=== PATIENT | female | born 1955 | race Caucasian/White ===

== ENCOUNTER 2018-08-10 07:40 | Inpatient (IN) | payer BC, SELFPAY ==
[~2018-08-10] VITALS: Ht 165.1 cm; Wt 163.6 kg
[~2018-08-10 07:40] MED LIST: COL100C PO; HYDR-3964 PO; KEP500T PO; MAX25Tt PO; NIFE90TA37 PO; PREG75CA30 PO; SYN0.0125T PO; VITA1TAB PO; VITC500T PO; ZOL50T PO
[2018-08-10 08:21] LABS: BASOPHILS # (AUTO) 0.1 X10'3 (0-0.2); BASOPHILS % (AUTO) 0.8 % (0-1); EOSINOPHILS # (AUTO) 0.1 X10'3 (0-0.9); EOSINOPHILS % (AUTO) 1.5 % (0-6); HEMATOCRIT 46.3 % (35.0-45.0); HEMOGLOBIN 14.7 g/dl (12.0-16.0); LYMPHOCYTES % (AUTO) 13.6 % (21-51); MEAN CORPUSCULAR HGB CONC 31.8 g/dL (33.0-36.5); MEAN CORPUSCULAR VOLUME 91.2 FL (78-98); MEAN PLATELET VOLUME 7.7 FL (7.4-10.4); MONOCYTES # (AUTO) 0.6 X10'3 (0-0.9); MONOCYTES % (AUTO) 8.1 % (2-12); NEUTROPHILS # (AUTO) 5.6 X10'3 (1.8-7.7); PLATELET COUNT 268 X10'3 (140-440); RED BLOOD COUNT 5.07 X10'6 (4.20-5.60); RED CELL DISTRIBUTION WIDTH 15.9 % (11.5-14.5); WHITE BLOOD COUNT 7.4 X10'3 (4.5-11.0)
[2018-08-10 08:34] LABS: ALANINE AMINOTRANSFERASE 20 U/L (12-78); ALBUMIN 3.5 G/DL (3.4-5.0); ALBUMIN/GLOBULIN RATIO 0.8 (1.1-1.5); ALKALINE PHOSPHATASE 77 IU/L (46-116); ANION GAP 5 (8-16); ASPARTATE AMINO TRANSFERASE 12 U/L (10-37); BILIRUBIN,TOTAL 0.5 MG/DL (0.1-1.0); BLOOD UREA NITROGEN 31 MG/DL (7-18); BUN/CREATININE RATIO 23.8 (6.6-38.0); CALCIUM 8.9 MG/DL (8.5-10.1); CHLORIDE 102 MMOL/L (99-107); GLUCOSE 106 MG/DL (70-104); POTASSIUM 3.5 MMOL/L (3.5-5.1); SODIUM 140 MMOL/L (135-145); TOTAL CARBON DIOXIDE 32.8 MMOL/L (24-32); TOTAL PROTEIN 7.8 G/DL (6.4-8.2); eGFR 41 ML/MIN
[2018-08-10 08:40] LABS: D-DIMER 1.05 MG/L FEU (0-0.50)
[2018-08-10] MEDS ORDERED: furosemide 10 MG/1 ML 10ml inj IV ONE (09:20)
[2018-08-10] MEDS ORDERED: potassium Cl 20 mEq SR tablet PO ONE (09:20)
[2018-08-10] MEDS ORDERED: iohexol 350MG/ML 100ml bottle IV ONE (09:44)
[2018-08-10] MEDS ORDERED: TRIA1CAP2 PO (10:00)
[2018-08-10] MEDS ORDERED: NIFE90TA2 PO (10:01)
[2018-08-10] MEDS ORDERED: TOPI50TA PO (10:03)
[2018-08-10] MEDS ORDERED: potassium CL 10mEq/100ml bag 100 ML IV PRN (11:40)
[2018-08-10] MEDS ORDERED: magnesium hydroxide 30ml (MOM) UD suspension PO PRN (11:40)
[2018-08-10] MEDS: K and/or MAG REPLACEMENT MC SCH (11:40)
[2018-08-10] MEDS ORDERED: magnesium Cl slow-release 64mg tablet PO PRN (11:40)
[2018-08-10] MEDS ORDERED: potassium Cl 40MEQ/NS 500ml 500 ML IV PRN (11:40)
[2018-08-10] MEDS ORDERED: potassium Cl 20 mEq SR tablet PO PRN ×2 (11:40)
[2018-08-10] MEDS ORDERED: diphenhydrAMINE 25mg capsule PO PRN (11:40)
[2018-08-10] MEDS ORDERED: mag hydrox/Alum hydrox/simeth 30ml oral suspension PO PRN (11:40)
[2018-08-10] MEDS ORDERED: HYDROcodone/acetaminophen 5mg/325mg tablet PO PRN (11:40)
[2018-08-10] MEDS ORDERED: magnesium 4gm in 100ml NS 100 ML IV PRN (11:40)
[2018-08-10] MEDS ORDERED: acetaminophen 325mg tablet PO PRN (11:40)
[2018-08-10] MEDS ORDERED: methylPREDNISolone sod succ 125mg/2ml vial IV ONE (11:40)
[2018-08-10] MEDS ORDERED: ondansetron/PF 4mg/2ml inj IV PRN (11:40)
[2018-08-10] MEDS ORDERED: morphine 2 MG/ML inj. syringe IV PRN ×2 (11:40)
[2018-08-10] MEDS ORDERED: HYDROcodone/acetaminophen 10/325mg tab PO PRN (11:40)
[2018-08-10] MEDS ORDERED: magnesium 2GM in 50ml NS 50 ML IV PRN (11:40)
[2018-08-10] MEDS ORDERED: labetalol 20mg/4ml (5mg/ml) syringe IV PRN (11:50)
[2018-08-10 12:24] LABS: COLOR,URINE YELLOW (Yellow); GLUCOSE, URINE NEGATIVE (Neg); KETONES,URINE NEGATIVE (Neg); LEUKOCYTE ESTERASE ,URINE NEGATIVE (Neg); NITRITES, URINE NEGATIVE (Neg); OCCULT BLOOD,URINE TRACE-LYSED (Neg); PROTEIN,URINE NEGATIVE (Neg); UROBILINOGEN,URINE 0.2 E.U/dL (0.2-1.0)
[2018-08-10 12:28] LABS: CLARITY,URINE SLIGHTLY CLOUDY (Clear); UA COLLECTION TYPE CLN CATCH MIDSTREAM
[2018-08-10 12:33] LABS: BACTERIA,URINE 1+ /HPF (Neg); RBC,URINE NONE SEEN /HPF (0-2); SQUAMOUS EPITHELIAL CELL,UR MANY /LPF (FEW); WBC,URINE NONE SEEN /HPF (0-4)
[2018-08-10] MEDS: normal saline 1000ml 1,000 ML IV SCH (12:33)
[2018-08-10] MEDS: levoFLOXACIN-Levaquin 500mg/D5 100 ML IV SCH (13:01)
[2018-08-10 13:04] LABS: HEMOGLOBIN A1C 6.4 % (4.5-6.2)
--- NOTE | 2018-08-10 13:06 | NUR ---
received pt report from Bia HOOPER.
[2018-08-10 13:15] VITALS: BP 165/87
--- NOTE | 2018-08-10 13:15 | NUR ---
pt arrived to floor via gurney ambulated to bed with cane. pt attached to cardiac monitoring; VSS. pt oriented to room and call light. at bedside.
[2018-08-10] MEDS: methylPREDNISolone sod succ 125mg/2ml vial IV SCH ×2 (13:39→21:08)
[2018-08-10 15:00] VITALS: BP 118/75
[2018-08-10] MEDS: ipratropium/albuterol 3ml nebule NEB SCH ×3 (16:24→23:04)
--- NOTE | 2018-08-10 18:00 | NUR ---
Patient in room PCU 3017. I have received report from Colby HOOPER and had the opportunity to ask questions and assume patient care.
--- NOTE | 2018-08-10 18:13 | NUR ---
pt report given to Romario HOOPER.
[2018-08-10 19:00] VITALS: BP 145/79
[2018-08-10] MEDS ORDERED: temazepam 15mg capsule PO PRN (21:00)
[2018-08-10] MEDS: topiramate 100mg tablet PO SCH (21:01)
[2018-08-10] MEDS: furosemide 10 MG/1 ML 10ml inj IV SCH (21:07)
[2018-08-10] MEDS: heparin, porcine 5000 units/ml vial SQ SCH (21:09)
[2018-08-10 23:00] VITALS: BP 131/73
[2018-08-11] VITALS (8 sets, daily range): BP systolic 93–149; BP diastolic 56–78
[2018-08-11] MEDS: methylPREDNISolone sod succ 125mg/2ml vial IV SCH ×4 (01:58→20:32)
[2018-08-11] MEDS: ipratropium/albuterol 3ml nebule NEB SCH ×4 (03:31→20:51)
--- NOTE | 2018-08-11 04:44 | NUR ---
Student documentation: I have reviewed and agree with all interventions, assessments performed and documented by Maegan Chong RN. Student Medication Administration: For this medication-pass time frame, all medication were reviewed, dispensed, administered and documented per hospital policy by Maegan Chong RN.
--- NOTE | 2018-08-11 05:21 | NUR ---
pt refused orthostatic BP during shift.
--- NOTE | 2018-08-11 06:00 | NUR ---
Patient in room PCU 3017. I have received report from Anthony RN and had the opportunity to ask questions and assume patient care.
--- NOTE | 2018-08-11 06:16 | NUR ---
Problems reprioritized. Patient report given, questions answered & plan of care reviewed with Mirella HOOPER.
[2018-08-11 06:24] LABS: BASOPHILS % (AUTO) 0.1 % (0-1); EOSINOPHILS % (AUTO) 0 % (0-6); HEMOGLOBIN 13.2 g/dl (12.0-16.0); LYMPHOCYTES # (AUTO) 0.2 X10'3 (1.1-4.8); LYMPHOCYTES % (AUTO) 3.5 % (21-51); MEAN CORPUSCULAR HEMOGLOBIN 28.9 PG (27.0-31.0); MEAN CORPUSCULAR HGB CONC 32.1 g/dL (33.0-36.5); MONOCYTES # (AUTO) 0.1 X10'3 (0-0.9); MONOCYTES % (AUTO) 1.7 % (2-12); NEUTROPHILS # (AUTO) 5.7 X10'3 (1.8-7.7); NEUTROPHILS % (AUTO) 94.7 % (42-75); PLATELET COUNT 229 X10'3 (140-440); RED BLOOD COUNT 4.55 X10'6 (4.20-5.60); RED CELL DISTRIBUTION WIDTH 15.8 % (11.5-14.5)
[2018-08-11 06:43] LABS: ALANINE AMINOTRANSFERASE 21 U/L (12-78); ALBUMIN 3.2 G/DL (3.4-5.0); ALBUMIN/GLOBULIN RATIO 0.8 (1.1-1.5); ALKALINE PHOSPHATASE 62 IU/L (46-116); ANION GAP 7 (8-16); ASPARTATE AMINO TRANSFERASE 12 U/L (10-37); BILIRUBIN,TOTAL 0.3 MG/DL (0.1-1.0); BLOOD UREA NITROGEN 28 MG/DL (7-18); BUN/CREATININE RATIO 21.2 (6.6-38.0); CALCIUM 8.4 MG/DL (8.5-10.1); CHLORIDE 102 MMOL/L (99-107); CHOL/HDL RATIO 2.7 (0.00-4.99); CHOLESTEROL 130 MG/DL (0-200); CREATININE 1.32 MG/DL (0.40-0.90); GLUCOSE 147 MG/DL (70-104); HDL CHOLESTEROL 49 MG/DL (35-60); LDL CHOLESTEROL 72 MG/DL (50-100); PHOSPHORUS 4.4 MG/DL (2.3-4.5); POTASSIUM 3.6 MMOL/L (3.5-5.1); SODIUM 142 MMOL/L (135-145); TOTAL CARBON DIOXIDE 32.8 MMOL/L (24-32); TOTAL PROTEIN 7.1 G/DL (6.4-8.2); TRIGLYCERIDES 65 MG/DL (20-135); eGFR 41 ML/MIN
[2018-08-11] MEDS: levoTHYROXINE 125mcg tablet PO SCH (07:09)
[2018-08-11] MEDS: K and/or MAG REPLACEMENT MC SCH (08:00)
[2018-08-11] MEDS: levoFLOXACIN-Levaquin 500mg/D5 100 ML IV SCH (08:47)
[2018-08-11] MEDS: sertraline 50mg tablet PO SCH (08:54)
[2018-08-11] MEDS: furosemide 10 MG/1 ML 10ml inj IV SCH ×2 (08:54→20:32)
[2018-08-11] MEDS: triamterene/HCTZ 37.5/25mg tablet PO SCH (08:54)
[2018-08-11] MEDS: NIFEdipine XL 30mg tablet PO SCH (08:55)
[2018-08-11] MEDS: heparin, porcine 5000 units/ml vial SQ SCH ×2 (08:57→20:31)
[2018-08-11] MEDS ORDERED: ipratropium/albuterol 3ml nebule NEB PRN (11:05)
[2018-08-11] MEDS: nystatin 15 GM powder TP SCH ×2 (16:08→20:33)
--- NOTE | 2018-08-11 18:00 | NUR ---
Problems reprioritized. Patient report given, questions answered & plan of care reviewed with Anthony HOOPER and Romario HOOPER.
--- NOTE | 2018-08-11 18:28 | NUR ---
Patient in room PCU 3017. I have received report from Mirella HOOPER and had the opportunity to ask questions and assume patient care.
[2018-08-11] MEDS: lactobacillus rhamnosus 10,000 MMU CELLS/CAPSULE PO SCH (20:32)
[2018-08-11] MEDS: topiramate 100mg tablet PO SCH (20:33)
--- NOTE | 2018-08-12 01:50 | NUR ---
pt O2 sat dropped to low 80s while in deep sleep with NC on, increased O2 from 2L to 3L, O2 sat increased to low 90s will reassess and titrate as needed.
[2018-08-12] MEDS: methylPREDNISolone sod succ 125mg/2ml vial IV SCH ×2 (02:25→09:16)
[2018-08-12 03:00] VITALS: BP 139/78
[2018-08-12] MEDS: ipratropium/albuterol 3ml nebule NEB SCH ×4 (03:00→20:37)
--- NOTE | 2018-08-12 03:06 | NUR ---
pt refused 0300 RT treatment
--- NOTE | 2018-08-12 06:00 | NUR ---
Patient in room PCU 3017. I have received report from Anthony HOOPER and Romario HOOPER and had the opportunity to ask questions and assume patient care.
--- NOTE | 2018-08-12 06:16 | NUR ---
Problems reprioritized. Patient report given, questions answered & plan of care reviewed with Mirella HOOPER.
[2018-08-12 06:26] LABS: BASOPHILS % (AUTO) 0.1 % (0-1); EOSINOPHILS % (AUTO) 0 % (0-6); HEMOGLOBIN 13.2 g/dl (12.0-16.0); LYMPHOCYTES # (AUTO) 0.2 X10'3 (1.1-4.8); LYMPHOCYTES % (AUTO) 3.4 % (21-51); MEAN CORPUSCULAR HEMOGLOBIN 28.6 PG (27.0-31.0); MEAN CORPUSCULAR HGB CONC 31.5 g/dL (33.0-36.5); MEAN CORPUSCULAR VOLUME 90.8 FL (78-98); MONOCYTES # (AUTO) 0.2 X10'3 (0-0.9); MONOCYTES % (AUTO) 2.4 % (2-12); NEUTROPHILS # (AUTO) 6.9 X10'3 (1.8-7.7); NEUTROPHILS % (AUTO) 94.1 % (42-75); PLATELET COUNT 236 X10'3 (140-440); RED BLOOD COUNT 4.63 X10'6 (4.20-5.60); RED CELL DISTRIBUTION WIDTH 16.2 % (11.5-14.5); WHITE BLOOD COUNT 7.3 X10'3 (4.5-11.0)
[2018-08-12 06:29] LABS: ALANINE AMINOTRANSFERASE 19 U/L (12-78); ALBUMIN 3.2 G/DL (3.4-5.0); ALBUMIN/GLOBULIN RATIO 0.8 (1.1-1.5); ALKALINE PHOSPHATASE 59 IU/L (46-116); ANION GAP 4 (8-16); ASPARTATE AMINO TRANSFERASE 8 U/L (10-37); BILIRUBIN,TOTAL 0.3 MG/DL (0.1-1.0); BLOOD UREA NITROGEN 36 MG/DL (7-18); BUN/CREATININE RATIO 26.7 (6.6-38.0); CALCIUM 8.4 MG/DL (8.5-10.1); CHLORIDE 101 MMOL/L (99-107); CREATININE 1.35 MG/DL (0.40-0.90); GLUCOSE 143 MG/DL (70-104); MAGNESIUM 2.2 MG/DL (1.5-2.4); PHOSPHORUS 5.4 MG/DL (2.3-4.5); POTASSIUM 3.8 MMOL/L (3.5-5.1); SODIUM 141 MMOL/L (135-145); TOTAL CARBON DIOXIDE 35.9 MMOL/L (24-32); TOTAL PROTEIN 7.1 G/DL (6.4-8.2); eGFR 40 ML/MIN
[2018-08-12 06:33] VITALS: BP 130/77
[2018-08-12] MEDS: K and/or MAG REPLACEMENT MC SCH (08:00)
[2018-08-12] MEDS: furosemide 10 MG/1 ML 10ml inj IV SCH ×2 (09:07→21:13)
[2018-08-12] MEDS: triamterene/HCTZ 37.5/25mg tablet PO SCH (09:17)
[2018-08-12] MEDS: lactobacillus rhamnosus 10,000 MMU CELLS/CAPSULE PO SCH ×2 (09:17→21:14)
[2018-08-12] MEDS: heparin, porcine 5000 units/ml vial SQ SCH ×2 (09:17→21:16)
[2018-08-12] MEDS: nystatin 15 GM powder TP SCH ×3 (09:17→21:30)
[2018-08-12] MEDS: NIFEdipine XL 30mg tablet PO SCH (09:17)
[2018-08-12] MEDS: levoTHYROXINE 125mcg tablet PO SCH (09:18)
[2018-08-12] MEDS: sertraline 50mg tablet PO SCH (09:18)
[2018-08-12 11:00] VITALS: BP_SYST 131; BP_SYST 150; BP_DIAS 108; BP_DIAS 70; BP_DIAS 93
[2018-08-12] MEDS: normal saline 1000ml 1,000 ML IV SCH (11:55)
[2018-08-12] MEDS: levoFLOXACIN 250mg tablet PO SCH (11:55)
[2018-08-12 15:00] VITALS: BP 144/81
--- NOTE | 2018-08-12 16:29 | NUR ---
Pt c/o tremors YENI, neuro assessment completed, no changes from assessment this AM. FSBG 121. Pt admits to having had tremors in past, but not this bad. Addendum: 08/12/18 at 1735 by Tameka Hardin RN 1700 Tremors in YENI have decreased in severity.
--- NOTE | 2018-08-12 18:15 | NUR ---
Patient in room PCU 3017. I have received report from Mirella HOOPER and had the opportunity to ask questions and assume patient care. Checked on patient, she is resting in bed with her at bedside. No current needs, will continue to monitor.
--- NOTE | 2018-08-12 18:30 | NUR ---
Problems reprioritized. Patient report given, questions answered & plan of care reviewed with Noemí HOOPER and Alondra HOOPER.
[2018-08-12 19:00] VITALS: BP 143/74
[2018-08-12] MEDS: methylPREDNISolone sod succ/PF 40mg inj. IV SCH (21:13)
[2018-08-12] MEDS: topiramate 100mg tablet PO SCH (21:14)
[2018-08-12 23:00] VITALS: BP 145/75
[2018-08-13 03:00] VITALS: BP 128/72
[2018-08-13] MEDS: ipratropium/albuterol 3ml nebule NEB SCH ×4 (03:16→21:11)
[2018-08-13 05:24] LABS: BASOPHILS % (AUTO) 0.2 % (0-1); EOSINOPHILS % (AUTO) 0 % (0-6); HEMATOCRIT 40.2 % (35.0-45.0); HEMOGLOBIN 12.9 g/dl (12.0-16.0); LYMPHOCYTES # (AUTO) 0.4 X10'3 (1.1-4.8); LYMPHOCYTES % (AUTO) 5.2 % (21-51); MEAN CORPUSCULAR HEMOGLOBIN 28.7 PG (27.0-31.0); MEAN CORPUSCULAR HGB CONC 32.2 g/dL (33.0-36.5); MEAN CORPUSCULAR VOLUME 89.2 FL (78-98); MONOCYTES # (AUTO) 0.5 X10'3 (0-0.9); MONOCYTES % (AUTO) 5.2 % (2-12); NEUTROPHILS # (AUTO) 7.8 X10'3 (1.8-7.7); NEUTROPHILS % (AUTO) 89.4 % (42-75); PLATELET COUNT 205 X10'3 (140-440); RED CELL DISTRIBUTION WIDTH 15.7 % (11.5-14.5); WHITE BLOOD COUNT 8.7 X10'3 (4.5-11.0)
[2018-08-13 06:00] VITALS: BP 127/77
[2018-08-13 06:10] LABS: ALANINE AMINOTRANSFERASE 22 U/L (12-78); ALBUMIN 3.2 G/DL (3.4-5.0); ALBUMIN/GLOBULIN RATIO 0.9 (1.1-1.5); ALKALINE PHOSPHATASE 53 IU/L (46-116); ANION GAP 3 (8-16); ASPARTATE AMINO TRANSFERASE 12 U/L (10-37); BILIRUBIN,TOTAL 0.3 MG/DL (0.1-1.0); BLOOD UREA NITROGEN 43 MG/DL (7-18); BUN/CREATININE RATIO 32.1 (6.6-38.0); CALCIUM 8.4 MG/DL (8.5-10.1); CHLORIDE 100 MMOL/L (99-107); CREATININE 1.34 MG/DL (0.40-0.90); GLUCOSE 116 MG/DL (70-104); MAGNESIUM 2.1 MG/DL (1.5-2.4); PHOSPHORUS 3.9 MG/DL (2.3-4.5); POTASSIUM 3.2 MMOL/L (3.5-5.1); SODIUM 142 MMOL/L (135-145); TOTAL CARBON DIOXIDE 39.5 MMOL/L (24-32); TOTAL PROTEIN 6.7 G/DL (6.4-8.2); eGFR 40 ML/MIN
[2018-08-13] MEDS: nystatin 15 GM powder TP SCH ×3 (08:00→21:39)
[2018-08-13] MEDS: K and/or MAG REPLACEMENT MC SCH (08:00)
[2018-08-13] MEDS: triamterene/HCTZ 37.5/25mg tablet PO SCH (08:22)
[2018-08-13] MEDS: sertraline 50mg tablet PO SCH (08:22)
[2018-08-13] MEDS: lactobacillus rhamnosus 10,000 MMU CELLS/CAPSULE PO SCH ×2 (08:22→19:22)
[2018-08-13] MEDS: methylPREDNISolone sod succ/PF 40mg inj. IV SCH (08:22)
[2018-08-13] MEDS: levoTHYROXINE 125mcg tablet PO SCH (08:22)
[2018-08-13] MEDS: furosemide 10 MG/1 ML 10ml inj IV SCH (08:22)
[2018-08-13] MEDS: heparin, porcine 5000 units/ml vial SQ SCH ×2 (08:23→19:23)
[2018-08-13] MEDS: NIFEdipine XL 30mg tablet PO SCH (08:30)
[2018-08-13 11:00] VITALS: BP 123/78
[2018-08-13] MEDS: levoFLOXACIN 250mg tablet PO SCH (11:36)
[2018-08-13] MEDS ORDERED: potassium Cl 20 mEq SR tablet PO PRN (13:50)
[2018-08-13] MEDS ORDERED: potassium CL 10mEq/100ml bag 100 ML IV PRN (13:50)
[2018-08-13] MEDS: potassium Cl 20 mEq SR tablet PO PRN ×2 (14:06→19:22)
[2018-08-13 15:00] VITALS: BP 128/82
--- NOTE | 2018-08-13 18:21 | NUR ---
Problems reprioritized. Patient report given, questions answered & plan of care reviewed with SANDIE Dowd.
[2018-08-13 19:00] VITALS: BP 116/73
[2018-08-13] MEDS: furosemide 40mg/4ml inj IV SCH (19:21)
[2018-08-13 20:56] LABS: ABG HCO3 42.3 mmol/L (22.0-26.0); ABG OXYGEN SATURATION 93.2 % (95-98); ABG PCO2 (T) 72.9 mmHg (32.0-45.0); ABG PH (T) 7.378 (7.350-7.450); ABG PO2 (T) 65.4 mmHg (83-108); ALLEN'S TEST Positive; FCOHb 1.1 % (0.5-1.5); FLOW 2 L/min; FMetHb 0.1 % (0.3-1.12); FO2Hb 92.1 % (94-100); PATIENT TEMPERATURE 36.3; TOTAL HEMOGLOBIN 15.3 G/dl (12.0-16.0)
[2018-08-13] MEDS: topiramate 100mg tablet PO SCH (21:38)
[2018-08-13 23:00] VITALS: BP 118/70
--- NOTE | 2018-08-13 23:47 | NUR ---
Nystop applied under breasts and panis--areas still red but improving
[2018-08-14] MEDS: potassium Cl 20 mEq SR tablet PO PRN ×4 (00:05→22:53)
[2018-08-14 03:00] VITALS: BP 120/75
[2018-08-14] MEDS: ipratropium/albuterol 3ml nebule NEB SCH ×4 (03:09→21:11)
[2018-08-14 05:58] LABS: BASOPHILS % (AUTO) 0.3 % (0-1); EOSINOPHILS % (AUTO) 0.4 % (0-6); HEMATOCRIT 44.6 % (35.0-45.0); LYMPHOCYTES # (AUTO) 1.3 X10'3 (1.1-4.8); LYMPHOCYTES % (AUTO) 16.9 % (21-51); MEAN CORPUSCULAR HEMOGLOBIN 28.4 PG (27.0-31.0); MEAN CORPUSCULAR HGB CONC 31.4 g/dL (33.0-36.5); MEAN CORPUSCULAR VOLUME 90.6 FL (78-98); MEAN PLATELET VOLUME 7.9 FL (7.4-10.4); MONOCYTES # (AUTO) 0.8 X10'3 (0-0.9); MONOCYTES % (AUTO) 9.8 % (2-12); NEUTROPHILS # (AUTO) 5.6 X10'3 (1.8-7.7); NEUTROPHILS % (AUTO) 72.6 % (42-75); PLATELET COUNT 202 X10'3 (140-440); RED BLOOD COUNT 4.92 X10'6 (4.20-5.60); RED CELL DISTRIBUTION WIDTH 15.8 % (11.5-14.5); WHITE BLOOD COUNT 7.7 X10'3 (4.5-11.0)
[2018-08-14 06:00] VITALS: BP 120/72
[2018-08-14 06:14] LABS: ALANINE AMINOTRANSFERASE 20 U/L (12-78); ALBUMIN 3.1 G/DL (3.4-5.0); ALBUMIN/GLOBULIN RATIO 0.9 (1.1-1.5); ALKALINE PHOSPHATASE 55 IU/L (46-116); ANION GAP 3 (8-16); ASPARTATE AMINO TRANSFERASE 13 U/L (10-37); BILIRUBIN,TOTAL 0.4 MG/DL (0.1-1.0); BLOOD UREA NITROGEN 44 MG/DL (7-18); BUN/CREATININE RATIO 33.8 (6.6-38.0); CALCIUM 8.3 MG/DL (8.5-10.1); CHLORIDE 101 MMOL/L (99-107); GLUCOSE 96 MG/DL (70-104); MAGNESIUM 2.2 MG/DL (1.5-2.4); PHOSPHORUS 4.4 MG/DL (2.3-4.5); POTASSIUM 3.4 MMOL/L (3.5-5.1); SODIUM 144 MMOL/L (135-145); TOTAL CARBON DIOXIDE 39.8 MMOL/L (24-32); TOTAL PROTEIN 6.7 G/DL (6.4-8.2); eGFR 41 ML/MIN
--- NOTE | 2018-08-14 06:30 | NUR ---
Patient in room PCU 3017B. I have received report from Noemí HOOPER and had the opportunity to ask questions and assume patient care.
[2018-08-14] MEDS: sertraline 50mg tablet PO SCH (07:36)
[2018-08-14] MEDS: nystatin 15 GM powder TP SCH ×3 (07:36→20:23)
[2018-08-14] MEDS: triamterene/HCTZ 37.5/25mg tablet PO SCH (07:36)
[2018-08-14] MEDS: levoTHYROXINE 125mcg tablet PO SCH (07:36)
[2018-08-14] MEDS: methylPREDNISolone sod succ/PF 40mg inj. IV SCH (07:36)
[2018-08-14] MEDS: NIFEdipine XL 30mg tablet PO SCH (07:36)
[2018-08-14] MEDS: lactobacillus rhamnosus 10,000 MMU CELLS/CAPSULE PO SCH ×2 (07:36→20:11)
[2018-08-14] MEDS: heparin, porcine 5000 units/ml vial SQ SCH ×2 (07:37→20:11)
[2018-08-14] MEDS: furosemide 40mg/4ml inj IV SCH ×2 (07:37→20:11)
[2018-08-14] MEDS: K and/or MAG REPLACEMENT MC SCH (07:51)
[2018-08-14 11:00] VITALS: BP_SYST 123; BP_SYST 127; BP_SYST 139; BP_DIAS 111; BP_DIAS 73; BP_DIAS 94
[2018-08-14] MEDS: normal saline 1000ml 1,000 ML IV SCH (11:37)
[2018-08-14] MEDS: levoFLOXACIN 250mg tablet PO SCH (11:46)
--- NOTE | 2018-08-14 14:14 | NUR ---
RN verbal consult: Pt requests to speak w/ RD regarding diet recommendations. Pt seen by RD and asked for alternative seasonings to salt which could add flavor for once she goes home since she is in process of d/c. Pt also asked about diet guidelines for wt loss. Given hx DM A1C <7; RD provided verbal DM diet guidelines emphasizing on portion sizing and alternative seasoning options. Pt also encouraged to increase activity if possible at home even through simple means; pt says she plans to start cooking for herself now. BARRY provided RD extension for pt to call in case further questions prior to d/c. Addendum: 08/14/18 at [address] Amended: Links added.
[2018-08-14 15:00] VITALS: BP 111/55
--- NOTE | 2018-08-14 18:20 | NUR ---
Patient in room PCU 3017. I have received report from Brittney OHOPER and had the opportunity to ask questions and assume patient care WITH RAHEEM HOOPER.
--- NOTE | 2018-08-14 18:21 | NUR ---
Problems reprioritized. Patient report given, questions answered & plan of care reviewed with Kylah HOOPER and Micaela HOOPER.
[2018-08-14 19:00] VITALS: BP 120/70
[2018-08-14] MEDS: topiramate 100mg tablet PO SCH (20:11)
[2018-08-14 23:00] VITALS: BP_SYST 121; BP_SYST 149; BP_SYST 153; BP_DIAS 65; BP_DIAS 78; BP_DIAS 81
[2018-08-15] MEDS: acetaminophen 325mg tablet PO PRN ×2 (00:42→22:30)
[2018-08-15] MEDS: ipratropium/albuterol 3ml nebule NEB SCH (02:42)
[2018-08-15 03:00] VITALS: BP 152/80
[2018-08-15 05:08] LABS: BASOPHILS % (AUTO) 0.3 % (0-1); EOSINOPHILS # (AUTO) 0.1 X10'3 (0-0.9); EOSINOPHILS % (AUTO) 1.2 % (0-6); HEMATOCRIT 46.8 % (35.0-45.0); LYMPHOCYTES # (AUTO) 1.3 X10'3 (1.1-4.8); LYMPHOCYTES % (AUTO) 14.9 % (21-51); MEAN CORPUSCULAR HEMOGLOBIN 28.6 PG (27.0-31.0); MEAN CORPUSCULAR VOLUME 89.5 FL (78-98); MEAN PLATELET VOLUME 7.8 FL (7.4-10.4); MONOCYTES # (AUTO) 0.8 X10'3 (0-0.9); MONOCYTES % (AUTO) 9.7 % (2-12); NEUTROPHILS # (AUTO) 6.2 X10'3 (1.8-7.7); NEUTROPHILS % (AUTO) 73.9 % (42-75); PLATELET COUNT 207 X10'3 (140-440); RED BLOOD COUNT 5.23 X10'6 (4.20-5.60); RED CELL DISTRIBUTION WIDTH 15.5 % (11.5-14.5); WHITE BLOOD COUNT 8.4 X10'3 (4.5-11.0)
[2018-08-15 05:39] LABS: ALANINE AMINOTRANSFERASE 24 U/L (12-78); ALBUMIN 3.2 G/DL (3.4-5.0); ALBUMIN/GLOBULIN RATIO 0.9 (1.1-1.5); ALKALINE PHOSPHATASE 55 IU/L (46-116); ANION GAP 2 (8-16); ASPARTATE AMINO TRANSFERASE 10 U/L (10-37); BILIRUBIN,TOTAL 0.5 MG/DL (0.1-1.0); BLOOD UREA NITROGEN 39 MG/DL (7-18); BUN/CREATININE RATIO 28.3 (6.6-38.0); CHLORIDE 99 MMOL/L (99-107); CREATININE 1.38 MG/DL (0.40-0.90); GLUCOSE 103 MG/DL (70-104); MAGNESIUM 2.3 MG/DL (1.5-2.4); PHOSPHORUS 4.1 MG/DL (2.3-4.5); POTASSIUM 3.6 MMOL/L (3.5-5.1); SODIUM 144 MMOL/L (135-145); TOTAL PROTEIN 6.9 G/DL (6.4-8.2); eGFR 39 ML/MIN
[2018-08-15 05:50] LABS: TOTAL CARBON DIOXIDE 43.2 MMOL/L (24-32)
--- NOTE | 2018-08-15 05:53 | NUR ---
PAGER ID: [phone] MESSAGE: Anne-Marie Spence [id number] Critical Value Co2 43.2. Thanks, Kylah HOOPER
--- NOTE | 2018-08-15 06:07 | NUR ---
Problems reprioritized. Patient report given, questions answered & plan of care reviewed with Mili RNs.
--- NOTE | 2018-08-15 06:07 | NUR ---
orientee documentation: I have reviewed and agree with all interventions, assessments performed and documented by Kylah HOOPER.
--- NOTE | 2018-08-15 06:15 | NUR ---
Patient in room PCU 3017B. I have received report from Kylah HOOPER & Micaela HOOPER and had the opportunity to ask questions and assume patient care.
[2018-08-15 06:30] VITALS: BP 124/82
[2018-08-15] MEDS: triamterene/HCTZ 37.5/25mg tablet PO SCH (07:53)
[2018-08-15] MEDS: sertraline 50mg tablet PO SCH (07:53)
[2018-08-15] MEDS: lactobacillus rhamnosus 10,000 MMU CELLS/CAPSULE PO SCH ×2 (07:53→19:36)
[2018-08-15] MEDS: NIFEdipine XL 30mg tablet PO SCH (07:53)
[2018-08-15] MEDS: methylPREDNISolone sod succ/PF 40mg inj. IV SCH (07:53)
[2018-08-15] MEDS: levoTHYROXINE 125mcg tablet PO SCH (07:53)
[2018-08-15] MEDS: heparin, porcine 5000 units/ml vial SQ SCH (07:53)
[2018-08-15] MEDS: furosemide 40mg/4ml inj IV SCH (07:53)
[2018-08-15] MEDS: K and/or MAG REPLACEMENT MC SCH (07:54)
[2018-08-15] MEDS: nystatin 15 GM powder TP SCH ×3 (08:09→20:58)
--- NOTE | 2018-08-15 09:06 | NUR ---
Paged DR Leal regarding patient afib episode last night PAGER ID: [phone] MESSAGE: Lashawn [phone]. RE Lukasz Spence that telephone claims representative reported to me that patient had 3 minute run of a-fib last night, with HR peaking in 140s. Currently in Sinus Rhythm
--- NOTE | 2018-08-15 09:44 | NUR ---
Paged Dr Leal about ABG PAGER ID: [phone] MESSAGE: Lashawn [phone]. Lukasz Torres [id number]. BMP came back this morning showing CO2 of 43.2, which was reported by night nurse to T[facility] [place]. ABG done on 08/13, would you like another ABG done today?
[2018-08-15 10:03] LABS: ALBUMIN 3.1 G/DL (3.4-5.0); ANION GAP -2 (8-16); BLOOD UREA NITROGEN 35 MG/DL (7-18); BUN/CREATININE RATIO 28.5 (6.6-38.0); CHLORIDE 102 MMOL/L (99-107); CREATININE 1.23 MG/DL (0.40-0.90); GLUCOSE 136 MG/DL (70-104); POTASSIUM 3.5 MMOL/L (3.5-5.1); SODIUM 144 MMOL/L (135-145); eGFR 44 ML/MIN
[2018-08-15 10:10] LABS: TOTAL CARBON DIOXIDE 43.8 MMOL/L (24-32)
[2018-08-15 10:19] LABS: CALCIUM 8.6 MG/DL (8.5-10.1)
--- NOTE | 2018-08-15 10:19 | NUR ---
PAGER ID: [phone] MESSAGE: Lashawn [phone] Lukasz Torres [id number]. BMP resulted with new CO2 of 43.8. Any new orders?
[2018-08-15 11:00] VITALS: BP 136/78
--- NOTE | 2018-08-15 11:25 | NUR ---
O2 Sat at rest on room air:__84_% If below 89%: Recovery O2 Sat at rest on _2__LPM:__92% via_Nasal Cannula____(mask/nasal cannula, etc..) No further documentation is necessary. If O2 Sat did not drop below 89% on room air,ambulate patient on room air. O2 Sat while ambulating on room air:___% Recovery O2 Sat while ambulating on ___LPM:___% No further documentation is necessary. If patient does not drop below 89% while ambulating, he/she does not qualify for home O2.
[2018-08-15 12:04] VITALS: BP_SYST 122; BP_SYST 128; BP_SYST 136; BP_DIAS 68; BP_DIAS 74; BP_DIAS 78
[2018-08-15] MEDS: levoFLOXACIN 250mg tablet PO SCH (12:10)
--- NOTE | 2018-08-15 13:17 | NUR ---
Paged and spoke to RT to try full face mask for patient to attempt Bipap again due to her CO2 continuing to trend up. RT stated she will try and come after her lunch break.
[2018-08-15 18:00] VITALS: BP_SYST 113; BP_SYST 132; BP_SYST 135; BP_DIAS 64; BP_DIAS 85; BP_DIAS 87
--- NOTE | 2018-08-15 18:14 | NUR ---
Problems reprioritized. Patient report given, questions answered & plan of care reviewed with Micaela HOOPER and Sylvia HOOPER.
--- NOTE | 2018-08-15 18:30 | NUR ---
Patient in room PCU 3017. I have received report from Lashawn HOOPER and had the opportunity to ask questions and assume patient care.
--- NOTE | 2018-08-15 18:30 | NUR ---
Patient in room PCU 3017. I have received report from pricila aguila and had the opportunity to ask questions and assume patient care with Kylah.
[2018-08-15] MEDS: apixaban 5mg tablet PO SCH (19:37)
[2018-08-15] MEDS: topiramate 100mg tablet PO SCH (20:57)
[2018-08-15 22:00] VITALS: BP 104/52
--- NOTE | 2018-08-15 23:40 | NUR ---
Pt was put on BiPaP at 2229 and taken off on 2334. Will continue to work with and encourage patient to put on BiPaP.
--- NOTE | 2018-08-16 01:34 | NUR ---
notified by telephone exchange operator of pt sats of 82, pt on bipap. checked o2 sqats with finger meter, 82%. RT paged. Pt now in low 90s, will continue to monitor
--- NOTE | 2018-08-16 01:51 | NUR ---
RT titrating bipap, and encouraging pt to wear bipap tonight. oxygen sats drop when she is sleeping.
[2018-08-16 02:00] VITALS: BP 146/80
--- NOTE | 2018-08-16 04:23 | NUR ---
Pt requested to take off BiPaP off at 0200 and to keep it off for the rest of the night.
[2018-08-16 05:23] LABS: ALBUMIN 3.1 G/DL (3.4-5.0); ANION GAP 3 (8-16); BLOOD UREA NITROGEN 37 MG/DL (7-18); BUN/CREATININE RATIO 28.5 (6.6-38.0); CALCIUM 9.2 MG/DL (8.5-10.1); CHLORIDE 98 MMOL/L (99-107); GLUCOSE 102 MG/DL (70-104); SODIUM 143 MMOL/L (135-145); eGFR 41 ML/MIN
[2018-08-16 05:41] LABS: TOTAL CARBON DIOXIDE 42.2 MMOL/L (24-32)
[2018-08-16 06:00] VITALS: BP 119/65
--- NOTE | 2018-08-16 06:42 | NUR ---
Problems reprioritized. Patient report given, questions answered & plan of care reviewed with Kaur and Aayush RNs.
--- NOTE | 2018-08-16 06:42 | NUR ---
[place]rientee documentation: I have reviewed and agree with all interventions, assessments performed and documented by Kylah HOOPER.
[2018-08-16] MEDS: nystatin 15 GM powder TP SCH (08:00)
[2018-08-16] MEDS ORDERED: furosemide 40mg/4ml inj IV SCH (08:00)
[2018-08-16] MEDS ORDERED: diltiazem CD 120mg capsule (once-daily) PO SCH (08:00)
[2018-08-16] MEDS: K and/or MAG REPLACEMENT MC SCH (08:00)
[2018-08-16] MEDS ORDERED: NYSPWD TP (09:06)
[2018-08-16] MEDS ORDERED: POTA10TA36 PO (09:06)
[2018-08-16] MEDS ORDERED: APIX5TAB3 PO (09:06)
[2018-08-16] MEDS ORDERED: CARCD120C PO (09:06)
[2018-08-16] MEDS ORDERED: PRED10TA23 PO (09:06)
[2018-08-16] MEDS ORDERED: LACT1CAP26 PO (09:06)
[2018-08-16] MEDS ORDERED: ALBU8.5H8 INH (09:10)
[2018-08-16] MEDS ORDERED: BUDE10.22 INH (09:10)
[2018-08-16] MEDS: lactobacillus rhamnosus 10,000 MMU CELLS/CAPSULE PO SCH (09:11)
[2018-08-16] MEDS: levoFLOXACIN 250mg tablet PO SCH (09:11)
[2018-08-16] MEDS: methylPREDNISolone sod succ/PF 40mg inj. IV SCH (09:11)
[2018-08-16] MEDS: apixaban 5mg tablet PO SCH (09:11)
[2018-08-16] MEDS: triamterene/HCTZ 37.5/25mg tablet PO SCH (09:12)
[2018-08-16] MEDS: sertraline 50mg tablet PO SCH (09:12)
[2018-08-16] MEDS: levoTHYROXINE 125mcg tablet PO SCH (09:23)
[2018-08-16] MEDS: potassium Cl 20 mEq SR tablet PO PRN (11:32)
--- NOTE | 2018-08-16 13:04 | NUR ---
Initial: Pt admit with resp fail, COPD, and CHF. Pt currently on heart healthy diet with documented 75-100% PO intake meeting nutrient needs. Attempted visit with pt at bedside however pt was unavailable. Per EMR pt with allergy to kiwi. LB 08/14. Pt currently with active d/c orders, will continue to follow. Recommendations: 1) Continue with heart healthy diet 2) Monitor need for additional bowel care 3) Wt per rx Addendum: 08/16/18 at [address] Amended: Links added.
[2018-08-16 13:57] VITALS: BP 129/77
--- NOTE | 2018-08-16 15:12 | NUR ---
Discharged to the care of her . Steps used to board vehicle. All belongings send home with Pt., Home O2 is used for transport. Pt. demonstrates ability to use O2 concentrator. She has relieved detailed instruction for each of her new home medications. All discharge instructions are reviewed and well understood. Her follow up appointments are made: One for the payroll human resources assistant, and one for her GP. IV is removed and show w
--- NOTE | 2018-08-16 15:19 | NUR ---
IV DC'd and minor swelling is noted from infiltration today.
== END 2018-08-16 15:15 | disposition home health service (06) | DRG 291 ==
LOC: ER 07:40 → PCU 3S 13:15
PROVIDERS: ADMIT Family Medicine; ATTEND Family Medicine
PROC: BW241ZZ Computerized Tomography (CT Scan) of Chest and Abdomen using Low Osmolar Contrast (ICD-10-PCS; principal; 2018-08-10)
DX: I11.0 Hypertensive heart disease with heart failure (principal); J96.01 Acute respiratory failure with hypoxia; E66.2 Morbid (severe) obesity with alveolar hypoventilation; I69.354 Hemiplegia and hemiparesis following cerebral infarction affecting left non-dominant side; Q61.3 Polycystic kidney, unspecified; N39.0 Urinary tract infection, site not specified; Z68.44 Body mass index [BMI] 60.0-69.9, adult; I50.30 Unspecified diastolic (congestive) heart failure; E03.9 Hypothyroidism, unspecified; E87.6 Hypokalemia; F32.9 Major depressive disorder, single episode, unspecified; F41.9 Anxiety disorder, unspecified; G40.909 Epilepsy, unspecified, not intractable, without status epilepticus; G89.4 Chronic pain syndrome; I27.29 Other secondary pulmonary hypertension; I27.81 Cor pulmonale (chronic); I48.0 Paroxysmal atrial fibrillation; I49.1 Atrial premature depolarization; J06.9 Acute upper respiratory infection, unspecified; J44.9 Chronic obstructive pulmonary disease, unspecified; Z79.890 Hormone replacement therapy; Z80.1 Family history of malignant neoplasm of trachea, bronchus and lung; Z82.3 Family history of stroke; Z82.49 Family history of ischemic heart disease and other diseases of the circulatory system; Z88.0 Allergy status to penicillin; Z88.2 Allergy status to sulfonamides; Z91.018 Allergy to other foods
CPT/HCPCS: 36415; 36600; 71045; 71275; 80048; 80053; 80061; 81001; 82803; 82948; 83036; 83605; 83735; 83880; 84100; 84443; 84484; 85018; 85025; 85379; 87040; 87070; 87088; 93005; 94640; 94660; 94667; 94668; 94760; 96361; 96374; 96375; 97110; 97116; 97162; 97164; 97530; 99285; G0378; J1644; J1940; J1956; J2920; J2930; J3480; J7030; Q9967